=== PATIENT | female | born 1990 | race Caucasian/White ===

== ENCOUNTER 2017-07-16 09:01 | Day surgery (SDC) | payer OTHER ==
[2017-07-16] MEDS ORDERED: LIDOCAINE 2% (SDV) 5 ML INJ (10:32)
[2017-07-16] MEDS ORDERED: PROPOFOL 40 ML (10:32)
== END 2017-07-16 12:33 | disposition home or self-care (01) ==
LOC: GIL 09:01
DX: K62.5 Hemorrhage of anus and rectum (principal); K64.8 Other hemorrhoids
CPT/HCPCS: 45378; 84703